=== PATIENT | female | born 1985 | race American Indian/Alaskan Native ===

== ENCOUNTER 2021-07-23 12:59 | Emergency (ER) | payer OTHER ==
[2021-07-23] MEDS ORDERED: DEXAMETHASONE 4 MG TAB PO ONE (16:41)
[2021-07-23] MEDS ORDERED: ACETAMINOPHEN W/CODEINE 300-30 MG TAB PO ONE (16:41)
--- NOTE | 2021-07-23 17:16 | XRay Report ---
XR chest routine 2V INDICATION / CLINICAL INFORMATION: sob, fever, cough COMPARISON: None available. FINDINGS: SUPPORT DEVICES: None. HEART / MEDIASTINUM: No significant abnormality. LUNGS / PLEURA: No consolidation. Nonspecific 4 mm small nonspecific left midlung zone nodular opacit y with a more medial linear component which is most likely benign and could represent overlapping sha dows. Costophrenic sulci are sharp. No pneumothorax. ADDITIONAL FINDINGS: No significant additional findings. IMPRESSION: 1. No definite acute findings. Signer Name: Rey Richey MD Signed: 07/23/2021 5:11 PM Workstation Name: [id number]
--- NOTE | 2021-07-23 17:28 | Emergency Department Report ---
- General Chief Complaint: Weakness Stated Complaint: COUGH/BODY ACHES/FEVER Time Seen by Provider: 07/23/21 16:18 Source: patient Mode of arrival: Ambulatory Limitations: No Limitations - History of Present Illness Initial Comments: 35-year-old female with no past medical history presents to the emergency department for evaluation of of 2-day history of cough, body aches, fever, chills, fatigue, and shortness of breath. She states that symptoms have been unrelieved by [id number]-pec-givclck medications. She denies chest pain, nausea, and dysuria. Her last menstrual period was 2 weeks ago. MD Complaint: fever, cough, sore throat, rhinorrhea, nasal congestion -: Gradual, days(s) (Tube) Severity: moderate Consistency: constant Associated Symptoms: fever, chills, myalgias, rhinorrhea, nasal congestion, sore throat, cough, shortness of breath. denies: diaphoresis, headache, stiff neck, chest pain, abdominal pain, nausea, vomiting, diarrhea, dysuria, rash, confusion, hoarseness, ear pain Treatments Prior to Arrival: "cold medicine" - Related Data Previous Rx's Medication Instructions Recorded Last Taken Type Brompheniramine/Pseudoephed/Dm 10 ml PO TID PRN #120 ml 07/23/21 Unknown Rx [Bromfed Dm Cough Syrup] Prednisone [predniSONE 10 mg 10 mg PO .TAPER #1 tab 07/23/21 Unknown Rx (6-Day Pack, 21 Tabs)] Allergies Allergy/AdvReac Type Severity Reaction Status Date / Time Penicillins Allergy Unknown Verified 07/23/21 13:16 ED Review of Systems ROS: Stated complaint: COUGH/BODY ACHES/FEVER Other details as noted in HPI Comment: All other systems reviewed and negative Constitutional: chills, fever, malaise. denies: diaphoresis, weakness Eyes: denies: eye pain, eye discharge ENT: throat pain, congestion. denies: ear pain Respiratory: cough, shortness of breath Cardiovascular: denies: chest pain, palpitations, dyspnea on exertion, orthopnea, edema, syncope Endocrine: no symptoms reported Gastrointestinal: denies: abdominal pain, nausea, vomiting, diarrhea, hematemesis, melena, hematochezia Genitourinary: denies: urgency, dysuria Musculoskeletal: denies: back pain, joint swelling, arthralgia Skin: denies: rash, lesions Neurological: denies: headache, weakness, numbness, paresthesias Psychiatric: denies: anxiety, depression Hematological/Lymphatic: denies: easy bleeding, easy bruising ED Past Medical Hx - Medications Home Medications: Home Medications Medication Instructions Recorded Confirmed Last Taken Type Brompheniramine/Pseudoephed/Dm 10 ml PO TID PRN #120 ml 07/23/21 Unknown Rx [Bromfed Dm Cough Syrup] Prednisone [predniSONE 10 mg 10 mg PO .TAPER #1 tab 07/23/21 Unknown Rx (6-Day Pack, 21 Tabs)] ED Physical Exam - General Limitations: No Limitations General appearance: alert, in no apparent distress - Head Head exam: Present: atraumatic, normocephalic - Eye Eye exam: Present: normal appearance. Absent: scleral icterus, conjunctival injection - ENT ENT exam: Present: normal external ear exam. Absent: normal orophraynx (Erythema to posterior oropharynx) - Expanded ENT Exam Expanded Mouth exam: Present: normal external inspection Throat exam: Positive: tonsillar erythema. Negative: tonsillomegaly, tonsillar exudate, R peritonsillar mass, L peritonsillar mass - Neck Neck exam: Present: normal inspection. Absent: lymphadenopathy - Respiratory Respiratory exam: Present: normal lung sounds bilaterally. Absent: respiratory distress, wheezes, rales, rhonchi, stridor, chest wall tenderness, accessory muscle use - Cardiovascular Cardiovascular Exam: Present: tachycardia, normal heart sounds - GI/Abdominal GI/Abdominal exam: Present: soft, normal bowel sounds. Absent: distended, tenderness, guarding, rebound, rigid - Extremities Exam Extremities exam: Present: normal inspection - Back Exam Back exam: Present: normal inspection. Absent: tenderness, CVA tenderness (R), CVA tenderness (L) - Neurological Exam Neurological exam: Present: alert, oriented X3 - Psychiatric Psychiatric exam: Present: normal affect, normal mood, depressed - Skin Skin exam: Present: warm, dry, intact ED Course Vital Signs 07/23/21 07/23/21 07/23/21 13:16 16:50 18:12 Temperature 98 F 98.2 F Pulse Rate 102 H 94 H Respiratory 16 16 17 Rate Blood Pressure 138/64 156/90 [Left] O2 Sat by Pulse 98 96 Oximetry ED Medical Decision Making - Radiology Data Radiology results: report reviewed, image reviewed Chest x-ray IMPRESSION: 1. No definite acute findings. - Medical Decision Making 35-year-old female with no past medical history presents to the emergency department for evaluation of of 2-day history of cough, body aches, fever, chills, fatigue, and shortness of breath. She states that symptoms have been unrelieved by [id number] medications. She denies chest pain, nausea, and dysuria. Her last menstrual period was 2 weeks ago. Chest x-ray without any acute abnormalities noted. Symptoms and exam consistent with URI with cough and congestion, and patient will be treated with steroid pack along with Bromfed to take as needed for cough and congestion. She was advised to take medications as prescribed and follow-up with primary care provider if no improvement or worsening symptoms. She verbalized understanding of and agreement with plan of care. Critical care attestation.: If time is entered above; I have spent that time in minutes in the direct care of this critically ill patient, excluding procedure time. ED Disposition Clinical Impression: URI with cough and congestion Disposition: 01 HOME / SELF CARE / HOMELESS Is pt being admited?: No Does the pt Need Aspirin: No Condition: Stable Instructions: Cough, Adult, [id number], Upper Respiratory Infection, Adult, [id number] Additional Instructions: Take medications as prescribed. Drink plenty of noncaffeinated fluids. Get rest. Follow-up with primary care provider if no improvement or worsening symptoms. Prescriptions: Brompheniramine/Pseudoephed/Dm [Bromfed Dm Cough Syrup] 10 ml PO TID PRN #120 ml PRN Reason: Cough Prednisone [predniSONE 10 mg (6-Day Pack, 21 Tabs)] 10 mg PO .TAPER #1 tab Referrals: FABIEN GARNETT MD [Referring] - 3-5 Days Forms: Work/School Release Form(ED)
[2021-07-23 18:14] VITALS: BP 156/90
== END 2021-07-23 18:13 | disposition home or self-care (01) ==
LOC: ED 12:59
DX: J06.9 Acute upper respiratory infection, unspecified (principal); Z88.0 Allergy status to penicillin
CPT/HCPCS: 71046; 99283; J8540